=== PATIENT | male | born 1940 | race Caucasian/White ===

== ENCOUNTER 2020-09-25 16:16 | Emergency (ER) | payer BC ==
[2020-09-25 17:08] LABS: HEMOGLOBIN 16.3 gm/dl (14.0-17.5); RED BLOOD COUNT 5.18 M/UL (4.20-5.50); WHITE BLOOD COUNT 11.3 K/UL (4.5-11.0)
[2020-09-25 17:35] LABS: BUN/CREATININE RATIO 18 (0-10)
== END 2020-09-25 19:02 | disposition short-term general hospital (02) ==
LOC: ER1 16:16
PROVIDERS: Emergency Medicine
DX: I63.9 Cerebral infarction, unspecified (principal); E11.9 Type 2 diabetes mellitus without complications; I10 Essential (primary) hypertension; Z88.0 Allergy status to penicillin; R29.706 NIHSS score 6
CPT/HCPCS: 70450; 71045; 80053; 80307; 81001; 82550; 82553; 83735; 83874; 83880; 84439; 84443; 84484; 85025; 85610; 85730; 93005; 99285; J2997